=== PATIENT | male | born 1955 | race Caucasian/White ===

== ENCOUNTER → 2018-10-18 | Outpatient (CLI) | payer OTHER ==
[2018-10-18 10:06] LABS: INTERNATIONAL RATION (INR) 0.99; PROTHROMBIN TIME 13.1 SEC (11.4-15.4)
== END ==
LOC: OD 09:25
PROVIDERS: ATTEND Obstetrics & Gynecology
DX: R60.0 Localized edema (principal); M79.606 Pain in leg, unspecified
CPT/HCPCS: 36415; 85610; 85730

== ENCOUNTER 2019-01-25 13:02 | Emergency (ER) | payer OTHER ==
[2019-01-25 13:38] VITALS: BP 108/69
--- NOTE | 2019-01-25 15:10 | ER Document Report ---
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 Patient reports he drives back and forth 2-1/2 hours to [place] every week. He states he has been having pain to his left lower extremity for several months but worsening over the last week. He reports the pain is sometimes severe. He denies any other risk factors for DVT and denies history of DVTs. - REPRODUCTIVE Reproductive: DENIES: : Past Medical History - General Information source: Patient - Social History Smoking Status: Never Smoker Chew tobacco use (# tins/day): No Frequency of alcohol use: None Drug Abuse: None Family History: Reviewed & Not Pertinent Patient has suicidal ideation: No Patient has homicidal ideation: No - Medical History Medical History: Negative Surgical Hx: Negative - Immunizations Hx Diphtheria, Pertussis, Tetanus Vaccination: Yes Vertical Provider Document - CONSTITUTIONAL Notes: PHYSICAL EXAMINATION: GENERAL: Well-appearing, well-nourished and in no acute distress. HEAD: Atraumatic, normocephalic. EYES: Pupils equal round extraocular movements intact, conjunctiva are normal. ENT: Nares patent NECK: Normal range of motion LUNGS: No respiratory distress Musculoskeletal: Normal range of motion, no unilateral leg swelling noted. No erythema or ecchymosis noted. NEUROLOGICAL: Normal speech, normal gait. PSYCH: Normal mood, normal affect. SKIN: Warm, Dry, normal turgor, no rashes or lesions noted. - INFECTION CONTROL TRAVEL OUTSIDE OF THE [place] IN LAST 30 DAYS: No Course - Re-evaluation Re-evalutation: Venous Doppler was unofficially negative by Doppler tech. This was explained to the patient. Patient verbalized understanding and relief of this test result. He will be discharged home in stable condition at this time. Encourage follow- up with primary care if pain persists. Patient verbalized understanding. The patient's emergency department workup and current diagnosis were explained to the patient and or family. Follow-up instructions were provided. Medications if prescribed were discussed. Instructions for when to return to the emergency department including specific worrisome symptoms were discussed with the patient and/or family. - Vital Signs Vital signs: Temp Pulse Resp BP Pulse Ox 98.3 F 88 16 108/69 97 01/25/19 13:37 01/25/19 13:37 01/25/19 13:37 01/25/19 13:37 01/25/19 13:37 Discharge - Discharge Clinical Impression: Leg pain Qualifiers: Laterality: right Qualified Code(s): M79.604 - Pain in right leg Condition: Stable Disposition: HOME, SELF-CARE Additional Instructions: The venous Doppler ultrasound is unremarkable. [facility] to [facility] Referrals: KRISTI AWAD MD [Primary Care Provider] - Follow up as needed
--- NOTE | 2019-01-25 16:27 | XCELERA REPORT ---
[address] [place] [facility] [address] Lower Extremity Venous Evaluation Procedure: Color flow and duplex imaging of the veins of the right lower extremity as well as the left Common Femoral vein. Right Sided Venous Evaluation Normal vessel filling wall to wall, compression and augmentation as well as Colour flow down to the infrageniculate veins. Left Sided Venous Evaluation The left common femoral vein is fully compressible. Spontaneous and phasic flow is present in the left common femoral vein. Interpretation Summary No duplex evidence of DVT or obstruction in the right lower extremity nor in the left Common Femoral vein. Name: TJ SONG Age: 63 yrs Gender: Male : 1955 Patient Status: Preadmit Patient Location: ER Study Date: 01/25/2019 02:22 PM Reason For Study: RLE pain eval for DVT Ordering Physician: ADI STEARNS Performed By: Leah Brewster : ADI STEARNS > Sameer Wilburn
== END 2019-01-25 15:20 | disposition home or self-care (01) ==
LOC: ER 13:02
DX: M79.604 Pain in right leg (principal)
CPT/HCPCS: 93971; 99283

== ENCOUNTER 2019-05-02 10:48 | Emergency (ER) | payer OTHER, MEDICARE ==
--- NOTE | 2019-05-02 11:32 | ER Document Report ---
ED Medical Screen (RME) - General Chief Complaint: Cough Stated Complaint: COLD SYMPTOMS Time Seen by Provider: 05/02/19 11:23 Primary Care Provider: KRISTI AWAD MD [Primary Care Provider] - Follow up as needed Mode of Arrival: Ambulatory Information source: Patient Notes: Patient is a 64-year-old male presenting to the emergency department with 1 week history of cough. Patient does not believe he has had a fever. He does not believe he has been exposed to anyone with covert. 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 He states that his friend is an infectious disease doctor and told him to come here for testing. His lungs are clear and equal bilaterally, and I indicated to him that he does not meet preliminary criteria for testing. He wishes to proceed with influenza and chest x-ray. I have greeted and performed a rapid initial assessment of this patient. A co mprehensive ED assessment and evaluation of the patient, analysis of test results and completion of the medical decision making process will be conducted by additional ED providers. I have specifically instructed the patient or family members with the patient to immediately return to any nursing staff should anything change in the patient's condition or with their chief complaint. TRAVEL OUTSIDE OF THE [place] IN LAST 30 DAYS: No - Related Data Allergies/Adverse Reactions: No Known Allergies Allergy (Unverified 03/14/11 09:08) Home Medications: Metformin, Lisinopril, Gabapentin Past Medical History - Past Medical History Cardiac Medical History: Reports: Hx Hypertension Endocrine Medical History: Reports: Hx Diabetes Mellitus Type 2 - Immunizations Hx Diphtheria, Pertussis, Tetanus Vaccination: Yes Physical Exam - Vital signs Vitals: Temp Pulse Resp BP Pulse Ox 98.0 F 79 16 128/73 H 96 05/02/19 11:12 05/02/19 11:12 05/02/19 11:12 05/02/19 11:12 05/02/19 11:12 Course - Vital Signs Vital signs: Temp Pulse Resp BP Pulse Ox 98.0 F 79 16 128/73 H 96 05/02/19 11:12 05/02/19 11:12 05/02/19 11:12 05/02/19 11:12 05/02/19 11:12 Doctor's Discharge - Discharge Referrals: KRISTI AWAD MD [Primary Care Provider] - Follow up as needed
[2019-05-02 12:11] LABS: A TYPE INFLUENZA AG NEGATIVE (NEGATIVE); B INFLUENZA AG NEGATIVE (NEGATIVE)
--- NOTE | 2019-05-02 12:14 | RADIOLOGY REPORT (SQ) ---
EXAM DESCRIPTION: CHEST 2 VIEWS COMPLETED DATE/TIME: 05/02/2019 11:55 am REASON FOR STUDY: PERSISTANT COUGH COMPARISON: None. EXAM PARAMETERS: NUMBER OF VIEWS: two views TECHNIQUE: Digital Frontal and Lateral radiographic views of the chest acquired. RADIATION DOSE: NA LIMITATIONS: none FINDINGS: LUNGS AND PLEURA: No opacities, masses or pneumothorax. No pleural effusion. MEDIASTINUM AND HILAR STRUCTURES: No masses or contour abnormalities. HEART AND VASCULAR STRUCTURES: Heart normal size. No evidence for failure. BONES: No acute findings. HARDWARE: None in the chest. OTHER: No other significant finding. IMPRESSION: NO ACUTE RADIOGRAPHIC FINDING IN THE CHEST. TECHNICAL DOCUMENTATION: JOB ID: [id number] [employer]- All Rights Reserved Reading location - IP/workstation name: [id number]
[2019-05-02] MEDS ORDERED: HYDROCODONE/ACETAMINOPHEN 5-325 MG (6 TAB/ER DISP) PO PRN (14:47)
--- NOTE | 2019-05-02 14:51 | ER Document Report ---
HPI - HPI Patient complains to provider of: cough Time Seen by Provider: 05/02/19 11:23 Onset: Other Pain Level: Denies Context: This 64-year-old male with history of allergies presents emergency department for complaints of cough for about 1 week with production of yellow sputum. Reports he has had upper respiratory issues all his life. Reports he is allergic to pollen and cats and other animals. He sleeps with CPAP. Has had that for years. 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 He denies fever vomiting diarrhea. No complaints of shortness of breath. He reports he is eating drinking voiding as normal. He reports he did receive the flu vaccine this year Associated Symptoms: Allergy/hay fever, Productive cough Exacerbated by: Denies Relieved by: Denies Similar symptoms previously: Yes Recently seen / treated by doctor: No - CONSTITUTIONAL Constitutional: DENIES: Fever, Chills - RESPIRATORY Respiratory: REPORTS: Coughing - REPRODUCTIVE Reproductive: DENIES: : Past Medical History - General Information source: Patient - Social History Smoking Status: Unknown if Ever Smoked Cigarette use (# per day): No Frequency of alcohol use: None Drug Abuse: None Occupation: [employer] Lives with: Family Family History: Reviewed & Not Pertinent Patient has suicidal ideation: No Patient has homicidal ideation: No - Past Medical History Cardiac Medical History: Reports: Hx Hypertension Endocrine Medical History: Reports: Hx Diabetes Mellitus Type 2 Surgical Hx: Negative - Immunizations Hx Diphtheria, Pertussis, Tetanus Vaccination: Yes Vertical Provider Document - CONSTITUTIONAL Agree With Documented VS: Yes Exam Limitations: No Limitations General Appearance: WD/WN, No Apparent Distress - Nontoxic looking - INFECTION CONTROL TRAVEL OUTSIDE OF THE [place] IN LAST 30 DAYS: No - HEENT HEENT: Atraumatic, Normal ENT Exam, Normocephalic. negative: Conjuctival Injection, Pharyngeal Exudate, Pharyngeal Erythema, Tympanic Membrane Red - NECK Neck: Normal Inspection, Supple. negative: Lymphadenopathy-Left, Lymphadenopathy-Right - RESPIRATORY Respiratory: Breath Sounds Normal, No Respiratory Distress - CARDIOVASCULAR Cardiovascular: Regular Rate, Regular Rhythm - GI/ABDOMEN Gastrointestinal: Abdomen Soft, Abdomen Non-Tender - BACK Back: Normal Inspection. negative: CVA Tenderness-Right, CVA Tenderness-Left - MUSCULOSKELETAL/EXTREMETIES Musculoskeletal/Extremeties: STARLA HWANG - NEURO Level of Consciousness: Awake, Alert, Appropriate Motor/Sensory: No Motor Deficit - DERM Integumentary: Warm, Dry, No Rash - No visual rash Course - Re-evaluation Re-evalutation: 05/02/19 14:47 Laboratory 05/02/19 11:40 Influenza A (Rapid) NEGATIVE Influenza B (Rapid) NEGATIVE Chest X-Ray 05/02/19 11:29 IMPRESSION: NO ACUTE RADIOGRAPHIC FINDING IN THE CHEST. 05/02/19 14:53 Influenza negative chest x-ray negative. Patient was instructed on this. 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 He was instructed to monitor symptoms return for shortness of breath fever concerns. He verbalized understanding to all instructions. Patient requested something for his cough. He reports it keeps him up at night. He was prescribed [place] dispense pack. - Vital Signs Vital signs: Temp Pulse Resp BP Pulse Ox 98.0 F 79 16 128/73 H 96 05/02/19 11:12 05/02/19 11:12 05/02/19 11:12 05/02/19 11:12 05/02/19 11:12 - Diagnostic Test Radiology reviewed: Image reviewed, Reports reviewed Discharge - Discharge Clinical Impression: Cough Condition: Stable Disposition: HOME, SELF-CARE Instructions: Oral Narcotic Medication ([facility]) Additional Instructions: *You have been evaluated for a cough *Your flu test was negative. Your chest x-ray was negative for pneumonia. *Take medication as prescribed *Increase fluids, good handwashing *Monitor your temperature, take Tylenol as indicated *Follow up with a primary care provider within 1 week for recheck *Return to ED for difficulty breathing, worsening cough, concerns Forms: Elevated Blood Pressure Referrals: KRISTI AWAD MD [Primary Care Provider] - Follow up in 1 week
[2019-05-02 15:08] VITALS: BP 130/78
== END 2019-05-02 15:06 | disposition home or self-care (01) ==
LOC: ER 10:48
DX: R05 Cough (principal); I10 Essential (primary) hypertension; E11.9 Type 2 diabetes mellitus without complications
CPT/HCPCS: 71046; 87804; 99283